=== PATIENT | male | born 1960 | race Caucasian/White ===

== ENCOUNTER → 2017-08-28 | Outpatient (CLI) | payer OTHER ==
[~2017-08-28] VITALS: Ht 188 cm; Wt 124.7 kg
[~2017-08-28] MED LIST: B12INJ IM; CHLORTHALIDONE25 MG PO; ELIQUIS5 MG PO; EPIPEN 2-P0.3 MG/0.3 IM; FOLIC ACID 40400 MCG PO; IRON325 MG PO; NEXIUM 40 MG CA40 M1; NORCO 5-325 TA1 EACH PO; OMEPRAZOLE20 M2 PO; PEPCID40 MG PO; PREDNISONE50 MG PO; VITAMIN B-12500 MCG PO
[2017-08-28 12:37] VITALS: BP 144/88
[2017-08-28 12:44] LABS: HEMATOCRIT 48.1 % (42.0-52.0); HEMOGLOBIN 16.6 gm/dL (14.0-18.0); MCH 31.7 pg (26.0-34.0); MCHC 34.5 g/dL (28.0-37.0); MCV 91.8 fL (80.0-100.0); MPV 8.5 fl. (7.2-11.1); RBC 5.24 mil/uL (4.50-6.00); WBC 7.5 thou/uL (4.0-11.0)
[2017-08-28 12:54] LABS: CALCIUM 9.4 mg/dL (8.5-10.1); CREATININE 1.1 mg/dL (0.6-1.3); POTASSIUM 3.1 mmol/L (3.5-5.1)
[2017-08-28 15:21] VITALS: BP 137/90
[2017-08-28 15:42] VITALS: BP 141/88
[2017-08-28 15:53] VITALS: BP 138/87
== END | disposition home or self-care (01) ==
LOC: M.LAB 12:00 → M.INT 13:00
PROVIDERS: Radiology Diagnostic Radiology
DX: Z45.819 Encounter for adjustment or removal of unspecified breast implant (principal); I10 Essential (primary) hypertension; E78.00 Pure hypercholesterolemia, unspecified; Z79.899 Other long term (current) drug therapy; Z79.891 Long term (current) use of opiate analgesic; Z86.711 Personal history of pulmonary embolism; Z86.718 Personal history of other venous thrombosis and embolism

== ENCOUNTER → 2018-03-31 | Outpatient (CLI) | payer OTHER | LOC: M.MRI 07:09 | DX: S83.272A Complex tear of lateral meniscus, current injury, left knee, initial encounter (principal); S83.231A Complex tear of medial meniscus, current injury, right knee, initial encounter; M17.11 Unilateral primary osteoarthritis, right knee; L98.9 Disorder of the skin and subcutaneous tissue, unspecified; I87.2 Venous insufficiency (chronic) (peripheral); M71.22 Synovial cyst of popliteal space [Baker], left knee; X58.XXXA Exposure to other specified factors, initial encounter; Y93.89 Activity, other specified; Y92.89 Other specified places as the place of occurrence of the external cause; Y99.8 Other external cause status; Z68.36 Body mass index [BMI] 36.0-36.9, adult ==

== ENCOUNTER 2019-11-23 21:36 | Inpatient (IN) | payer OTHER ==
[~2019-11-23] VITALS: Ht 188 cm; Wt 136.5 kg
[2019-11-23 21:43] VITALS: BP 139/94
--- NOTE | 2019-11-23 23:00 | NUR ---
PT HAD NON-SUSTAINED VTACH THAT LASTED APPROXIMATELY 10 SECONDS, PT ASYMPTOMATIC. DR RAMIREZ TO THE BEDSIDE.
[2019-11-23 23:23] LABS: ABSOLUTE BASOPHILS 0.1 thou/uL (0.0-0.2); ABSOLUTE EOSINOPHILS 0.1 thou/uL (0.0-0.7); ABSOLUTE LYMPHOCYTES 3.2 thou/uL (0.8-5.3); ABSOLUTE MONOCYTES 0.4 thou/uL (0.0-1.2); ABSOLUTE NEUTROPHILS 3.8 thou/uL (1.6-8.1); BASOPHILS 0.9 %; EOSINOPHILS 1.8 %; HEMATOCRIT 45.4 % (42.0-52.0); HEMOGLOBIN 15.8 gm/dL (14.0-18.0); LYMPHOCYTES 42.1 %; MCH 32.6 pg (26.0-34.0); MCHC 34.8 g/dL (28.0-37.0); MCV 93.6 fL (80.0-100.0); MONOCYTES 4.7 %; MPV 8.6 fl. (7.2-11.1); NUCLEATED RBCS 0 /100WBC; PLATELET COUNT* 200 thou/uL (150-400); POLYS 50.5 %; RBC 4.85 mil/uL (4.50-6.00); RDW-CV 13.2 % (10.5-14.5); WBC 7.5 thou/uL (4.0-11.0)
[2019-11-23 23:33] LABS: CALCIUM 8.3 mg/dL (8.5-10.1); CREATININE 1.3 mg/dL (0.6-1.3)
[2019-11-23 23:34] LABS: POTASSIUM 2.5 mmol/L (3.5-5.1)
[2019-11-23 23:37] LABS: ALBUMIN 3.2 g/dL (3.4-5.0); MAGNESIUM 1.8 mg/dL (1.8-2.4); TOTAL BILIRUBIN 0.6 mg/dL (<0.1-1.0); TOTAL PROTEIN 7.5 g/dL (6.4-8.2)
[2019-11-23 23:50] VITALS: BP 133/74
[2019-11-24] VITALS (11 sets, daily range): BP systolic 111–160; BP diastolic 82–112
[2019-11-24 07:17] LABS: CALCIUM 8.7 mg/dL (8.5-10.1); CREATININE 1.4 mg/dL (0.6-1.3); POTASSIUM 3.4 mmol/L (3.5-5.1)
[2019-11-24 09:38] LABS: CHOLESTEROL 212 mg/dL (<200); HDL CHOLESTEROL 67 mg/dL (>40); LDL CHOLESTEROL 134 mg/dL (<100); TC:HDL 3.2 Ratio (Not establshd); TRIGLYCERIDE 58 mg/dL (<150); VLDL 12 mg/dL (<40)
[2019-11-24 09:40] LABS: SERUM ASSESSMENT Clear
--- NOTE | 2019-11-24 10:21 | EKG ---
[place] [address] ELECTROCARDIOGRAM REPORT Name: KEENKAI Room: [address] ADM IN .R.#: [id number] Admission: 11/23/19 Attend Phys: Oma Garcia, Discharge: Date of : 56 Date of Service: 11/23/19 2341 Report #: [id number] THIS REPORT FOR: //name// [facility] ED Test Date: 2019-11-23 Test Time: 23:41:51 Pat Name: KAI KEEN Department: Room: [address] Gender: M [employer] Dispatcher: : 1960 Requested By: Oma Garcia Order Number: [id number] Neal MD: Deyvi Kennedy Measurements Intervals [place] Rate: 97 P: 10 MO: 175 QRS: -11 QRSD: 120 T: 36 QT: 411 QTc: 522 Interpretive Statements Sinus rhythm Nonspecific intraventricular conduction delay Borderline T abnormalities, anterior leads Compared to ECG 07/09/2015 16:02:29 Intraventricular conduction delay now present T-wave abnormality now present Sinus tachycardia no longer present Left ventricular hypertrophy no longer present Myocardial infarct finding no longer present Electronically Signed On 11-24-2019 10:21:01 CDT by Deyvi Kennedy [email or web address] <ELECTRONICALLY SIGNED> By: Deyvi Kennedy MD, [facility] 11/24/19 1021 2341 234 Deyvi Kennedy MD, [facility] /EPI
--- NOTE | 2019-11-24 12:29 | 2DMMODE ---
[place] [address] 2 D/M-MODE ECHOCARDIOGRAM Name: KEENKAI Room: [address] IN .R.#: [id number] Admission: 11/23/19 Attend Phys: Oma Garcia, Discharge: Date of : 56 Date of Service: 11/24/19 1228 Report #: [id number] THIS REPORT FOR: cc: Deyvi Edwards MD, David L. MD Blick, David R. MD [facility] ~ APPROVED REPORT Study performed: 11/24/2019 10:23:16 EXAM: Comprehensive 2D, Doppler, and color-flow Echocardiogram Patient Location: In-Patient BSA: 2.59 HR: 110 bpm BP: 133/74 mmHg Other Information Study Quality: Fair Indications Arrhythmia 2D Dimensions IVSd: 13.60 (7-11mm) LVOT Diam: 27.16 (18-24mm) LVDd: 46.61 mm PWd: 11.47 (7-11mm) Ascending Ao: 41.50 (22-36mm) LVDs: 30.03 (25-40mm) Aortic Root: 40.30 mm Volumes Left Atrial Volume (Systole) LA ESV Index: 16.40 mL/m2 Aortic Valve AoV Peak Ayan.: 1.25 m/s AO Peak Gr.: 6.22 mmHg LVOT Max P.27 mmHg AO Mean Gr.: 3.78 mmHg LVOT Mean P.70 mmHg LVOT Max V: 0.90 m/s AO V2 VTI: 20.54 cm LVOT Mean V: 0.60 m/s XAVI (VTI): 4.41 cm2 LVOT V1 VTI: 15.65 cm Mitral Valve MV Decel. Time: 146.39 [place] [address] 2 D/M-MODE ECHOCARDIOGRAM Name: KAI KEEN Room: [address] IN [facility]#: [id number] Admission: 11/23/19 Attend Phys: Oma Garcia, Discharge: Date of : 56 Date of Service: 11/24/19 1228 Report #: [id number] MV PHT: 42.45 ms MVA (PHT): 5.18 cm2 TDI Medial E' Ayan.: 0.07 m/s Lateral E' Ayan.: 0.08 m/s Pulmonary Valve PV Peak Ayan.: 1.01 m/s PV Peak Gr.: 4.04 mmHg Left Ventricle The left ventricle is normal size. There is normal LV segmental wall motion. Mild concentric left ventricular hypertrophy. Left ventricular systolic function is normal. The left ventricular ejection fraction is within the normal range. LVEF is 60-65%. Right Ventricle The right ventricle is normal size. The right ventricular systolic function is normal. Atria The left atrium size is normal. The right atrium size is normal. Aortic Valve The Aortic valve is sclerotic. No aortic regurgitation is present. There is no aortic valvular stenosis. Mitral Valve The mitral valve is normal in structure. There is no mitral valve regurgitation noted. No evidence of mitral valve stenosis. Tricuspid Valve The tricuspid valve is normal in structure. There is no tricuspid valve regurgitation noted. Pulmonic Valve Pulmonic valve is not well visualized. There is no pulmonic valvular regurgitation. Great Vessels Aortic root is mildly dilated. The ascending aorta is mildly dilated. IVC is dilated. Pericardium [place] [address] 2 D/M-MODE ECHOCARDIOGRAM Name: KAI KEEN Room: [address]#: [id number] Admission: 11/23/19 Attend Phys: Oma Garcia, Discharge: Date of : 56 Date of Service: 11/24/19 1228 Report #: [id number] <Conclusion> Mild concentric left ventricular hypertrophy. LVEF is 60-65%. The Aortic valve is sclerotic. <ELECTRONICALLY SIGNED> By: Deyvi Kennedy MD, FACC 11/24/19 1228 1228 1228 Deyvi Kennedy MD, FACC /INF
--- NOTE | 2019-11-24 13:27 | NUR ---
ICU rounds: Pt is A&O. Resides at home with . Independent. No DME. No hx of HH or SNF. Goal is home at dc. in room at bedside.
[2019-11-24 13:42] LABS: MAGNESIUM 1.8 mg/dL (1.8-2.4); PHOSPHORUS* 1.2 mg/dL (2.5-4.9)
--- NOTE | 2019-11-24 18:00 | NUR ---
PROGRESSING TOWARDS GOALS. UP IN CHAIR HALF OF THE DAY. LESS ECTOPY. DENIES PAIN. TELE STATUS. PLAN FOR TRANSFER TONIGHT.
[2019-11-25] VITALS: BP 120/80
[2019-11-25 04:00] VITALS: BP 124/79
--- NOTE | 2019-11-25 05:02 | NUR ---
PT RECIEVED FROM ICU IN ROOM 225. ALERT AND ORIENTED X4. DENIES PAIN AND SOB. CALL LIGHT WITHIN REACH AND BED IN LOW POSITION. HOURLY ROUNDING DONE FOR PT SAFETY.
[2019-11-25 05:45] LABS: ALBUMIN 2.8 g/dL (3.4-5.0); CALCIUM 8.7 mg/dL (8.5-10.1); CREATININE 1.2 mg/dL (0.6-1.3); MAGNESIUM 2.3 mg/dL (1.8-2.4); PHOSPHORUS* 3.5 mg/dL (2.5-4.9); POTASSIUM 3.4 mmol/L (3.5-5.1)
[2019-11-25 08:00] VITALS: BP 131/86
--- NOTE | 2019-11-25 08:00 | NUR ---
ASSUMED PT. CARE AND RECEIVED REPORT AT 0730. PT A/OX4, VSS, MONITOR ON TRACING SR. PT. DENIES CURRENT PAIN/SOB. DENIES ANY SYMPTOMS OF REACTION. FULL ASSESSMENT COMPLETED, REFER TO CHARTING. PT. ANTICIPATES DC TODAY. CALL LIGHT IN REACH, WILL CONTINUE WITH PLAN OF CARE.
[2019-11-25] MEDS ORDERED: PREDNISONE 5 MG5 M1 PO (11:47)
[2019-11-25] MEDS ORDERED: DIPHENHIST50 MG PO (11:47)
[2019-11-25] MEDS ORDERED: ACID REDUCER20 MG PO (11:47)
[2019-11-25] MEDS ORDERED: LIVALO2 MG PO (12:16)
[2019-11-25 12:25] VITALS: BP 131/86
[2019-11-25] MEDS ORDERED: POTASSIUM20 PO (12:31)
--- NOTE | 2019-11-25 13:01 | NUR ---
DC ORDERS RECEIVED. IV AND MONITOR REMOVED. PT. GIVEN DC INSTRUCTIONS, SCRIPTS, VERBALIZED UNDERSTANDING. PT. LEFT VIA PERSONAL VEHICLE WITH SPOUSE, ALL BELONGINGS ACCOUNTED FOR.
== END 2019-11-25 12:55 | disposition home or self-care (01) | DRG 916 ==
LOC: M.ERS 21:36 → M.2W 23:15 → M.TBA-ER 23:15 → M.ICU 23:15 → M.2W 11-24 20:51
PROVIDERS: Emergency Medicine; Family Medicine; Registered Nurse; ADMIT Internal Medicine; ATTEND Internal Medicine
DX: T78.3XXA Angioneurotic edema, initial encounter (principal); I47.1 Supraventricular tachycardia; T78.40XA Allergy, unspecified, initial encounter; E83.39 Other disorders of phosphorus metabolism; E78.5 Hyperlipidemia, unspecified; E87.6 Hypokalemia; I12.9 Hypertensive chronic kidney disease with stage 1 through stage 4 chronic kidney disease, or unspecified chronic kidney disease; N18.3 Chronic kidney disease, stage 3 (moderate); M19.90 Unspecified osteoarthritis, unspecified site; E78.00 Pure hypercholesterolemia, unspecified; Z86.718 Personal history of other venous thrombosis and embolism; Z82.49 Family history of ischemic heart disease and other diseases of the circulatory system; Z86.711 Personal history of pulmonary embolism; Z95.828 Presence of other vascular implants and grafts; Z91.010 Allergy to peanuts; X58.XXXA Exposure to other specified factors, initial encounter

== ENCOUNTER → 2019-12-19 | Outpatient (CLI) | payer OTHER ==
[~2019-12-19] MED LIST changes: +ACID REDUCER20 MG PO; +DIPHENHIST50 MG PO; +LIVALO2 MG PO; +POTASSIUM20 PO; +PREDNISONE 5 MG5 M1 PO
== END ==
LOC: M.ULTRA 09:00
PROVIDERS: ATTEND Internal Medicine
DX: K76.5 Hepatic veno-occlusive disease (principal); R94.5 Abnormal results of liver function studies

== ENCOUNTER → 2020-07-06 | Outpatient (CLI) | payer OTHER | LOC: M.LAB 10:01 → M.CT 11:30 | PROVIDERS: ATTEND Registered Nurse | DX: I71.2 Thoracic aortic aneurysm, without rupture (principal); I10 Essential (primary) hypertension; I25.10 Atherosclerotic heart disease of native coronary artery without angina pectoris; J98.11 Atelectasis ==

== ENCOUNTER → 2020-08-21 | Outpatient (CLI) | payer OTHER ==
[2020-08-21] VITALS (11 sets, daily range): BP systolic 139–182; BP diastolic 103–115
[~2020-08-21] MED LIST changes: +SILDENAFIL20 MG PO; +TYLENOL325 M1 PO; +VITAMIN D3250 MC1 PO
--- NOTE | 2020-08-21 11:45 | TEE ---
[place] [address] TRANSESOPHAGEAL ECHOCARDIOGRAM Name: KAI KEEN Room: [facility]#: [id number] Admission: 08/21/20 Attend Phys: Mychal Larios, Discharge: Date of : 56 Date of Service: 08/21/20 1145 Report #: [id number] THIS REPORT FOR: cc: Mychal Cali MD, Michael B. MD Liston, Michael J. MD [facility] ~ APPROVED REPORT Study performed: 08/21/2020 09:40:36 EXAM: Transesophageal Echocardiogram Patient Location: Out-Patient Status: routine BSA: 2.62 HR: 95 bpm BP: 159/109 mmHg Rhythm: NSR Other Information Study Quality: Good Indications Assess aortic valve and root Echo Enhancing Agent Indication: Rule out Shunt Agent(s) / Amount(s) Used: Agitated Saline 10 cc Procedure After obtaining informed consent, patient underwent transesophageal echo in the [facility]. Type of Sedation : Conscious Sedation Sedation was administered by Luca Salinas RN. Sedation start time: 940 Case end Time: 957 Sedation was achieved intravenously with: Versed (4) Fentanyl (100) Transesophageal probe was inserted and advanced into esophagus without difficulty by Mychal Larios MD, FACC. Echo enhancement indication: R/O Septal defect. Echo enhancement agent administered: Agitated Saline The JD was performed without complications. Throughout the procedure, the blood pressure, pulse oximetry, cardiac rhythm, and rate were monitored. The patient tolerated the procedure without adverse [place] [address] TRANSESOPHAGEAL ECHOCARDIOGRAM Name: KAI KEEN Room: [facility]#: [id number] Admission: 08/21/20 Attend Phys: Mychal Larios, Discharge: Date of : 56 Date of Service: 08/21/20 1145 Report #: [id number] from conscious sedation was uneventful and vital signs were stable. Left Ventricle The left ventricle is normal size. There is normal LV segmental wall motion. There is normal left ventricular wall thickness. Left ventricular systolic function is normal. LVEF is 55-60%. Right Ventricle The right ventricle is normal size. The right ventricular systolic function is normal. Atria The left atrium size is normal. No thrombus is visualized in the left atrium or appendage. The interatrial septum is intact with no evidence for an atrial septal defect. The right atrium size is normal. Aortic Valve Cusp fusion. Aortic valve is bicuspid. Mild aortic regurgitation. Mitral Valve The mitral valve is normal in structure. Trace mitral regurgitation. Tricuspid Valve Tricuspid valve is not well visualized. Pulmonic Valve Pulmonic valve is not well visualized. Great Vessels Aortic root is dilated. Pericardium There is no pericardial effusion. <Conclusion> The left ventricle is normal size. There is normal left ventricular wall thickness. Left ventricular systolic function is normal. LVEF is 55-60%. The interatrial septum is intact with no evidence for an atrial septal defect. No thrombus is visualized in the left [place]rium [place] [address] TRANSESOPHAGEAL ECHOCARDIOGRAM Name: KEENKAI Shelly Room: [facility]#: [id number] Admission: 08/21/20 Attend Phys: Mychal Larios, Discharge: Date of : 56 Date of Service: 08/21/20 1145 Report #: [id number] Cusp fusion. Aortic valve is bicuspid. Mild aortic regurgitation. Trace mitral regurgitation. Aortic root is dilated. <ELECTRONICALLY SIGNED> By: Mychal Larios MD, FACC 08/21/20 1145 1145 114 Mychal Larios MD, FACC /INF
== END | disposition home or self-care (01) ==
LOC: M.CL 08:38
PROVIDERS: ATTEND Internal Medicine Cardiovascular Disease
DX: I71.9 Aortic aneurysm of unspecified site, without rupture (principal); I08.0 Rheumatic disorders of both mitral and aortic valves; I10 Essential (primary) hypertension; E78.5 Hyperlipidemia, unspecified; M19.90 Unspecified osteoarthritis, unspecified site; Z79.01 Long term (current) use of anticoagulants; Z86.718 Personal history of other venous thrombosis and embolism; Z86.711 Personal history of pulmonary embolism; Z98.890 Other specified postprocedural states; Z79.899 Other long term (current) drug therapy